=== PATIENT | female | born 1995 | race Caucasian/White ===

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

== ENCOUNTER 2017-05-18 01:58 | Emergency (ER) | payer OTHER ==
[~2017-05-18] VITALS: Ht 152.4 cm; Wt 63.0 kg
[~2017-05-18 01:58] MED LIST: IBUP-1542 PO
[2017-05-18 02:00] VITALS: Ht 152.4 cm; Wt 63.0 kg
[2017-05-18 02:32] LABS: URINE BLOOD (Dip) POC Trace-lysed (NEGATIVE)
[2017-05-18] MEDS ORDERED: KETOROLAC 15 MG INJ IV STA (03:03)
[2017-05-18] MEDS ORDERED: SOD CHLORIDE 0.9% 1,000 ML IV STA (03:03)
[2017-05-18] MEDS ORDERED: ONDANSETRON 4 MG INJ IV STA (03:03)
[2017-05-18] MEDS ORDERED: BELLADONNA/PHENOBARBITAL TAB PO STA (03:03)
[2017-05-18] MEDS ORDERED: LIDOCAINE/MYLANTA 40 ML BTL PO STA (03:03)
[2017-05-18] MEDS ORDERED: FAMOTIDINE 20 MG TAB PO STA (03:03)
[2017-05-18 03:26] LABS: BASOPHILS % 0.4 % (0.0-2.0); EOSINOPHILS # 0.3 10^3/ul (0.0-0.5); EOSINOPHILS % 2.4 % (0.0-7.0); HEMATOCRIT 40.3 % (37.0-47.0); LYMPHOCYTES # 2.9 10^3/ul (0.8-2.9); LYMPHOCYTES % 28.4 % (18.0-55.0); MEAN CORPUSCULAR HEMOGLOBIN 30.3 pg (29.0-33.0); MEAN CORPUSCULAR HGB CONC 34.7 g/dl (32.0-37.0); MEAN CORPUSCULAR VOLUME 87.2 fl (72.0-104.0); MONOCYTE # 0.8 10^3/ul (0.3-0.9); MONOCYTES % 8.1 % (0.0-13.0); NEUTROPHIL # 6.2 10^3/ul (1.6-7.5); PLATELET COUNT 318 10^3/UL (140-415); RED BLOOD COUNT 4.62 10^6/ul (4.20-5.40); RED CELL DISTRIBUTION WIDTH 12.7 % (11.5-14.5); WHITE BLOOD COUNT 10.3 10^3/ul (4.8-10.8)
[2017-05-18 03:41] LABS: ADD UMIC YES; UR ASCORBIC ACID NEGATIVE (NEGATIVE); UR BILIRUBIN (Dip) NEGATIVE (NEGATIVE); UR BLOOD (Dip) 1+ mg/dL (NEGATIVE); UR CLARITY CLEAR (CLEAR); UR COLOR STRAW (YELLOW); UR GLUCOSE (Dip) NEGATIVE (NEGATIVE); UR KETONES (Dip) NEGATIVE (NEGATIVE); UR LEUKOCYTE ESTERASE (Dip) NEGATIVE Leu/ul (NEGATIVE); UR NITRITE (Dip) NEGATIVE (NEGATIVE); UR RBC 1 /HPF (0-5); UR SPECIFIC GRAVITY (Dip) 1.011 (1.003-1.030); UR TOTAL PROTEIN (Dip) NEGATIVE (NEGATIVE); UR UROBILINOGEN (Dip) NEGATIVE (NEGATIVE)
[2017-05-18 03:55] LABS: ALBUMIN 4.4 g/dl (3.3-4.9); ALBUMIN/GLOBULIN RATIO 1.12; BILIRUBIN,INDIRECT 0.1 mg/dl (0-1.1); BILIRUBIN,TOTAL 0.1 mg/dl (0.2-1.3); CALCIUM 9.5 mg/dl (8.4-10.2); CREATININE 0.69 mg/dl (0.44-1.00); POTASSIUM 3.7 mmol/L (3.5-5.1); TOTAL PROTEIN 8.3 g/dl (6.1-8.1)
[2017-05-18] MEDS ORDERED: IBUP-1542 PO (05:04)
[2017-05-18] MEDS ORDERED: CARI350T PO (05:04)
--- NOTE | 2017-05-18 05:27 | ERD ---
ER Documentation Chief Complaint Date/Time DATE: 05/18/17 TIME: 05:24 Chief Complaint Bilateral ABD pain for a week, bilateral arm heaviness HPI 21-year-old young woman complains of upper back pain and right upper abdominal pain 1 week. Symptoms have been constant nonexertional nonradiating. She denies weight loss, no fevers or chills, no vomiting or diarrhea. Symptoms have been generally mild and without exacerbating or alleviating factors. Patient denies dysuria or domestic violence. ROS All systems reviewed and are negative except as per history of present illness. Medications Home Meds Active Scripts Carisoprodol* (Soma*) 350 Mg Tablet, 350 MG PO TID Y for MUSCLE SPASMS, #15 TAB Prov:GABRIELLA JACOBSON MD 05/18/17 Ibuprofen* (Ibuprofen*) 600 Mg Tablet, 600 MG PO Q8 for PAIN, #30 TAB Prov:GABRIELLA JACOBSON MD 05/18/17 Ibuprofen* (Motrin*) 600 Mg Tab, 600 MG PO Q6, #15 TAB Prov:MACEY CANDELARIO MD 11/17/16 Allergies Allergies: Coded Allergies: No Known Allergy (Unverified , 05/18/17) PMhx/Soc None Medical and Surgical Hx: pt denies Medical Hx, pt denies Surgical Hx History of Surgery: No Anesthesia Reaction: No Hx Neurological Disorder: No Hx Respiratory Disorders: No Hx Cardiac Disorders: No Hx Psychiatric Problems: No Hx Miscellaneous Medical Probl: No Hx Alcohol Use: No Hx Substance Use: No Hx Tobacco Use: No Smoking Status: Never smoker FmHx Family History: No diabetes Physical Exam Vitals Vital Signs Date Time Temp Pulse Resp B/P Pulse Ox O2 Delivery O2 Flow Rate FiO2 05/18/17 02:00 98.3 66 18 113/77 97 Physical Exam GENERAL: Well-developed, well-nourished, well-hydrated, in no apparent distress , looks nontoxic in appearance HEENT: Moist mucous membranes, pink conjunctiva, no cervical spine tenderness or step-off deformities, no goiter, no jaundice or icterus, extraocular movements intact without pain. No submandibular induration, and no pharyngeal erythema NEURO: Alert and oriented 3, cranial nerves II through XII intact bilaterally, pupils equal round reactive to light, no focal deficits or facial asymmetry, sensation intact distally Strength 5/5 in upper and lower extremities bilaterally CARDIAC: Regular rate and rhythm, no murmurs rubs or gallops LUNGS: Clear bilaterally no wheezing crackles or stridor ABDOMEN: Soft nontender, no guarding, no rigidity, no rebound, no psoas sign no obturator sign. Normoactive bowel sounds SKIN: Warm and dry to touch, no abrasions, contusions, or hematomas, no lacerations, no ecchymosis, no target lesions, and without ulcers EXTREMITIES: No clubbing cyanosis or edema, calves are bilaterally symmetrical, no Homans sign, no popliteal cord sign. Distal pulses equal and bilateral PSYCH: Normal affect without agitation or irritability Result Diagram: 05/18/17 0308 05/18/17 0308 Results 24 hrs Laboratory Tests Test 05/18/17 02:39 05/18/17 03:08 Bedside Urine pH (LAB) 7.0 Bedside Urine Protein (LAB) Negative Bedside Urine Glucose (UA) Negative Bedside Urine Ketones (LAB) Negative Bedside Urine Blood Trace-lysed Bedside Urine Nitrite (LAB) Negative Bedside Urine Leukocyte Esterase (L Negative White Blood Count 10.310^3/ul Red Blood Count 4.6210^6/ul Hemoglobin 14.0g/dl Hematocrit 40.3% Mean Corpuscular Volume 87.2fl Mean Corpuscular Hemoglobin 30.3pg Mean Corpuscular Hemoglobin Concent 34.7g/dl Red Cell Distribution Width 12.7% Platelet Count 16987^3/UL Mean Platelet Volume 12.0fl Neutrophils % 60.0% Lymphocytes % 28.4% Monocytes % 8.1% Eosinophils % 2.4% Basophils % 0.4% Nucleated Red Blood Cells % 0.0/100WBC Neutrophils # 6.210^3/ul Lymphocytes # 2.910^3/ul Monocytes # 0.810^3/ul Eosinophils # 0.310^3/ul Basophils # 0.010^3/ul Nucleated Red Blood Cells # 0.010^3/ul Urine Color STRAW Urine Clarity CLEAR Urine pH 7.0 Urine Specific Tram 1.011 Urine Ketones NEGATIVEmg/dL Urine Nitrite NEGATIVEmg/dL Urine Bilirubin NEGATIVEmg/dL Urine Urobilinogen NEGATIVEmg/dL Urine Leukocyte Esterase NEGATIVELeu/ul Urine Microscopic RBC 1/HPF Urine Microscopic WBC 0/HPF Urine Hemoglobin 1+mg/dL Urine Glucose NEGATIVEmg/dL Urine Total Protein NEGATIVEmg/dl Sodium Level 142mmol/L Potassium Level 3.7mmol/L Chloride Level 108mmol/L Carbon Dioxide Level 23mmol/L Anion Gap 15 Blood Urea Nitrogen 11mg/dl Creatinine 0.69mg/dl Glucose Level 102mg/dl Calcium Level 9.5mg/dl Total Bilirubin 0.1mg/dl Direct Bilirubin 0.00mg/dl Indirect Bilirubin 0.1mg/dl Aspartate Amino Transf (AST/SGOT) 22IU/L Alanine Aminotransferase (ALT/SGPT) 27IU/L Alkaline Phosphatase 77IU/L Total Protein 8.3g/dl Albumin 4.4g/dl Globulin 3.90g/dl Albumin/Globulin Ratio 1.12 Lipase 164U/L Current Medications Medications (Trade) Dose Ordered Sig/Priscilla Route PRN Reason Start Time Stop Time Status Last Admin Dose Admin Sodium Chloride (NS) 1,000 ml @ 1,000 mls/hr Q1H STAT IV 05/18/17 03:03 05/18/17 04:02 DC 05/18/17 03:20 Ondansetron HCl (Zofran Inj) 4 mg ONCE STAT IV 05/18/17 03:03 05/18/17 03:05 DC 05/18/17 03:21 Famotidine (Pepcid) 40 mg ONCE STAT PO 05/18/17 03:03 05/18/17 03:05 DC 05/18/17 03:21 Miscellaneous Medication (Gi Cocktail (2)) 40 ml ONCE STAT PO 05/18/17 03:03 05/18/17 03:05 DC 05/18/17 03:21 Belladonna/ Phenobarbital () 2 tab ONCE STAT PO 05/18/17 03:03 05/18/17 03:05 DC 05/18/17 03:21 Ketorolac Tromethamine (Toradol) 15 mg ONCE STAT IV 05/18/17 03:03 05/18/17 03:05 DC 05/18/17 03:20 Procedures/MDM IV line was established patient was placed on cardiac specialist rhythm strip revealed a sinus rhythm at about 70 bpm with upright P and T waves. Patient was afebrile. I administered 1 L normal saline intravenously, Toradol 15 mg IV, GI cocktail 50 cc p.o., famotidine 40 mg p.o., and Zofran 4 mg IV with good response. test was negative, urine analysis was negative for infection, CBC and electrolytes are normal, liver function tests were normal. Abdominal exam was repeated by me and remained normal, vital signs were normal and she had no concerning points on history or physical. She will be managed as an outpatient I recommended she follow-up with her PMD. I will defer imaging to PMD if indicated later. Differential diagnoses considered, included but not limited to acute coronary syndrome, pulmonary embolism, aortic dissection, abdominal aortic aneurysm, sepsis, stroke, meningitis, encephalitis, pneumonia, appendicitis, cholecystitis , bowel obstruction, pyelonephritis, nephrolithiasis, cystitis, as well as metabolic, hematologic, and electrolyte abnormalities. As well as abscess, cellulitis, fractures, and dislocations. Patient feels much better at this time, and vital signs are normal, symptoms have improved. I did give strict instructions to return to the ED if symptoms continue or worsen, patient will otherwise follow-up with primary care physician. Patient understood instructions and agreed to plan. Disclaimer: Inadvertent spelling and grammatical errors are likely due to EHR/ dictation software use and do not reflect on the overall quality of patient care. Also, please note that the electronic time recorded on this note does not necessarily reflect the actual time of the patient encounter. Departure Diagnosis: Primary Impression: Back pain Back pain location: thoracic back pain Chronicity: acute Back pain laterality: bilateral Qualified Code: M54.6 - Acute bilateral thoracic back pain Additional Impression: Abdominal pain Abdominal location: right upper quadrant Qualified Code: R10.11 - Right upper quadrant abdominal pain Condition: Good Patient Instructions: Abdominal Pain, Back Pain (Acute Or Chronic) GABRIELLA JACOBSON MD May 18, 2017 05:27
[2017-05-18 05:30] VITALS: BP 117/68; PULSE 68; RESP 18; TEMP 98.6
== END 2017-05-18 05:30 | disposition home or self-care (01) ==
LOC: E/R 01:58
DX: M54.6 Pain in thoracic spine (principal)
CPT/HCPCS: 36415; 80053; 81001; 83690; 85025; 96374; 96375; J1885; J2405; J7030; Z7502; Z7610; 81003